=== PATIENT | female | born 1955 | race Caucasian/White ===

== ENCOUNTER 2021-05-30 09:35 | Emergency (ER) | payer OTHER, MEDICARE ==
[~2021-05-30] VITALS: Ht 154.9 cm; Wt 56.8 kg
[2021-05-30 09:35] VITALS: BP 145/68
[2021-05-30] MEDS ORDERED: BISO5TAB14 (09:42)
[2021-05-30] MEDS ORDERED: LISI10TA24 (09:42)
[2021-05-30] MEDS ORDERED: LATA0.0015 (09:43)
[2021-05-30] MEDS ORDERED: CIPR250T26 PO (11:26)
[2021-05-30] MEDS ORDERED: CIPROFLOXACIN 500MG TABLET PO ONE (11:30)
== END 2021-05-30 12:08 | disposition home or self-care (01) ==
LOC: M ED 09:35
DX: N39.0 Urinary tract infection, site not specified (principal); I10 Essential (primary) hypertension; Z79.899 Other long term (current) drug therapy

== ENCOUNTER 2021-06-12 08:09 | Emergency (ER) | payer OTHER, MEDICARE ==
[~2021-06-12] VITALS: Ht 152.4 cm; Wt 59.1 kg
[~2021-06-12 08:09] MED LIST: BISO5TAB14; CIPR250T26 PO; LATA0.0015; LISI10TA24
[2021-06-12 08:10] VITALS: BP 161/77
== END 2021-06-12 10:59 | disposition home or self-care (01) ==
LOC: M ED 08:09
DX: R31.0 Gross hematuria (principal); I10 Essential (primary) hypertension; K57.30 Diverticulosis of large intestine without perforation or abscess without bleeding; Z79.899 Other long term (current) drug therapy

== ENCOUNTER 2022-04-24 08:06 | Emergency (ER) | payer MEDICARE, OTHER ==
[~2022-04-24] VITALS: Ht 154.9 cm; Wt 58.3 kg
[2022-04-24 11:46] LABS: BASO % 0.5 % (0.0-1.0); EOS % 0.3 % (0.0-3.0); HEMATOCRIT 42.2 % (36.0-47.0); LYMPH % 16.1 % (24.0-44.0); MEAN CORPUSCULAR HEMOGLOBIN 31.1 pg (27.0-33.0); MEAN CORPUSCULAR HGB CONC 33.2 g/dl (32.0-36.5); MEAN CORPUSCULAR VOLUME 93.8 fl (80.0-96.0); MONO # 0.4 10^3/uL (0.0-0.8); MONO % 5.8 % (2.0-8.0); NEUTROPHILS # 4.9 10^3/uL (1.5-8.5); PLATELET COUNT, AUTOMATED 259 10^3/uL (150-450); WHITE BLOOD COUNT 6.4 10^3/uL (4.0-10.0)
[2022-04-24 12:18] LABS: LIPASE 25 U/L (12-53)
[2022-04-24 12:20] LABS: ALBUMIN 4.5 G/DL (3.2-5.2); ALKALINE PHOSPHATASE 81 U/L (46-116); ALT/SGPT 24 U/L (7.0-40); AST/SGOT 11 U/L (<34); BILIRUBIN,DIRECT 0.2 MG/DL (<0.4); BILIRUBIN,TOTAL 0.7 MG/DL (0.3-1.2); BLOOD UREA NITROGEN 10 MG/DL (9-23); CALCIUM LEVEL 9.2 MG/DL (8.3-10.6); CARBON DIOXIDE LEVEL 29 MMOL/L (20-31); CHLORIDE LEVEL 107 MMOL/L (98-107); CREATININE FOR GFR 0.65 MG/DL (0.55-1.30); GLOMERULAR FILTRATION RATE > 60.0 (>45); GLUCOSE, FASTING 99 MG/DL (74-106); POTASSIUM SERUM 3.7 MMOL/L (3.5-5.1); SODIUM LEVEL 141 MMOL/L (136-145); TOTAL PROTEIN 7.4 G/DL (5.7-8.2)
[2022-04-24 13:49] VITALS: BP 138/88
== END 2022-04-24 13:52 | disposition home or self-care (01) ==
LOC: M ED 08:06
DX: R31.0 Gross hematuria (principal); D25.9 Leiomyoma of uterus, unspecified; K40.90 Unilateral inguinal hernia, without obstruction or gangrene, not specified as recurrent; I10 Essential (primary) hypertension; H40.9 Unspecified glaucoma; G89.29 Other chronic pain; M54.9 Dorsalgia, unspecified; Z79.899 Other long term (current) drug therapy

== ENCOUNTER → 2022-06-14 | Outpatient (REF) | payer MEDICARE, OTHER ==
[2022-06-14 14:35] LABS: APPEARANCE, URINE CLEAR (CLEAR); BACTERIA, URINE AUTO NEGATIVE (NEGATIVE); BILIRUBIN, URINE AUTO NEGATIVE (NEGATIVE); BLOOD, URINE BLOOD NEGATIVE (NEGATIVE); COLOR, URINE YELLOW (YELLOW); GLUCOSE, URINE (UA) AUTO NEGATIVE (NEGATIVE); KETONE, URINE AUTO NEGATIVE (NEGATIVE); LEUKOCYTE ESTERASE, URINE AUTO NEGATIVE (NEGATIVE); MUCUS, URINE SMALL (NEGATIVE); NITRITE, URINE AUTO NEGATIVE (NEGATIVE); PROTEIN, URINE AUTO NEGATIVE (NEGATIVE); RBC, URINE AUTO 0 /HPF (0-3); SPECIFIC GRAVITY URINE AUTO 1.009 (1.002-1.035); SQUAMOUS EPITHELIAL CELL UR AU 0 /HPF (0-6); UROBILINOGEN, URINE AUTO 0.2 mg/dL (0.0-2.0); WBC, URINE AUTO 0 /HPF (0-3)
== END ==
LOC: M SMT 13:03
PROVIDERS: ATTEND Physician Assistant
DX: Z87.898 Personal history of other specified conditions (principal); Z79.899 Other long term (current) drug therapy

== ENCOUNTER → 2022-07-07 | Outpatient (CLI) | payer MEDICARE, OTHER ==
[~2022-07-07] MED LIST changes: +ISOVUE-370 76% 100ML VIAL As Ordered ONE
== END ==
LOC: M RAD 11:17
PROVIDERS: ATTEND Physician Assistant
DX: Z87.898 Personal history of other specified conditions (principal); J98.11 Atelectasis; K76.89 Other specified diseases of liver; R16.0 Hepatomegaly, not elsewhere classified; E27.8 Other specified disorders of adrenal gland; K57.30 Diverticulosis of large intestine without perforation or abscess without bleeding; K63.89 Other specified diseases of intestine; I70.0 Atherosclerosis of aorta; D25.9 Leiomyoma of uterus, unspecified; M51.35 Other intervertebral disc degeneration, thoracolumbar region; M99.53 Intervertebral disc stenosis of neural canal of lumbar region; M41.86 Other forms of scoliosis, lumbar region
CPT/HCPCS: 74178; Q9967

== ENCOUNTER → 2024-11-14 | Outpatient (CLI) | payer MEDICARE, OTHER ==
[~2024-11-14] MED LIST changes: -ISOVUE-370 76% 100ML VIAL As Ordered ONE
== END ==
LOC: M WHC 14:16
PROVIDERS: ATTEND Advanced Practice Midwife
DX: Z13.820 Encounter for screening for osteoporosis (principal)